=== PATIENT | female | born 1995 | race African-American/Black ===

== ENCOUNTER 2016-08-12 12:44 | Emergency (ER) | payer OTHER ==
[~2016-08-12 12:44] MED LIST: ALBU8.5H6; MONT10TA6; SULF1TAB24 PO; TRIA15OI TP
[2016-08-12 12:58] VITALS: BP 136/73
[2016-08-12] MEDS ORDERED: HYDR-971 PO (13:22)
[2016-08-12] MEDS ORDERED: AMOX500C PO (13:22)
--- NOTE | 2016-08-12 13:22 | PHYS DOC ---
Past Medical History Past Medical History: Asthma Past Surgical History: Tonsillectomy, Other Additional Past Surgical Histo: adnoidectomy Alcohol Use: None Drug Use: None Adult General Chief Complaint Chief Complaint: DENTAL PROBLEM [facility] HPI Patient is a 21 year old female presents emergency department stating that she had her wisdom teeth pulled out a few weeks ago. She states that she had stopped smoking prior to the teeth being pulled. She states she did not use any stress drink a lot of. She states that she is having pain in her lower jaw area and in her upper teeth. She denies any nasal drainage or discharge denies any fever, chills. She has been taken ibuprofen for the pain and discomfort without relief. She states that she called her dentist and they are not able to get her in for at least a week to 2 weeks. Patient presents here to the emergency department for pain relief. Review of Systems Review of Systems Constitutional: Denies fever or chills [] Eyes: Denies change in visual acuity, redness, or eye pain [] HENT: Denies nasal congestion or sore throat. C/o dental pain Respiratory: Denies cough or shortness of breath [] Cardiovascular: No additional information not addressed in HPI [] GI: Denies abdominal pain, nausea, vomiting, bloody stools or diarrhea [] : Denies dysuria or hematuria [] Musculoskeletal: Denies back pain or joint pain [] Integument: Denies rash or skin lesions [] Neurologic: Denies headache, focal weakness or sensory changes [] Allergies Allergies Allergies Coded Allergies Type Severity Reaction Last Updated Verified varicella-zoster immune globulin (h Allergy Intermediate 08/22/15 Yes Physical Exam Physical Exam Constitutional: Well developed, well nourished, no acute distress, non-toxic appearance. [] HENT: Normocephalic, atraumatic, bilateral external ears normal, oropharynx moist, no oral exudates, nose normal. Bilateral tympanic membranes appear to be normal. Throat with no erythematous. Gumline appear to be very red and edematous upper and lower patient was noted to have maxillary sinus tenderness on both sites. No nasal drainage noted. Eyes: PERRLA, EOMI, conjunctiva normal, no discharge. [] Neck: Normal range of motion, no tenderness, supple, no stridor. [] Cardiovascular:Heart rate regular rhythm, no murmur [] Lungs & Thorax: Bilateral breath sounds clear to auscultation [] Skin: Warm, dry, no erythema, no rash. [] Back: No tenderness Extremities: No tenderness, no cyanosis, no clubbing, ROM intact, no edema. [] Neurologic: Alert and oriented X 3, normal motor function, normal sensory function, no focal deficits noted. [] Psychologic: Affect normal, judgement normal, mood normal. [] EKG EKG [] Radiology/Procedures Radiology/Procedures [] Course & Med Decision Making Course & Med Decision Making Pertinent Labs and Imaging studies reviewed. (See chart for details) Patient will be placed on amoxicillin 1 tablet 4 times a day with recommendations for ibuprofen 800 mg every 8 hours with food. Patient will be provided with hydrocodone for severe pain and discomfort. Patient was encouraged to keep her dental appointment. Patient agrees with discharge instructions treatment regimens and follow-up recommendations. Also recommended warm salt water mouth rinses 4 times a day. She was also instructed that hydrocodone will cause drowsiness do not take any be alert and oriented. [] Dragon Disclaimer Dragon Disclaimer This electronic medical record was generated, in whole or in part, using a voice recognition dictation system. Departure Departure Impression: Primary Impression: Pain, dental Disposition: HOME, SELF-CARE Condition: STABLE Referrals: SYDNI CURTIS MD (PCP) Patient Instructions: Dental Pain, [id number] Additional Instructions: Activity as tolerated. Medications as prescribed. Ibuprofen 800 mg every 8 hours with food stop taking few develop an upset stomach. Hydrocodone will cause drowsiness do not take any be alert and oriented. Keep your follow-up appointment with your dentist in which she state you have next week. Return back to emergency department sign symptoms of become worse. Scripts Hydrocodone/Apap 5-325 ([place] 5-325 Tablet)1 Each Tablet1 Tab PO PRN Q6HRS PRN PAIN #10 TAB Prov:VERENA JEAN BLANKET WINDER HELPER 08/12/16 Amoxicillin 500 Mg Capsule1 Cap PO QID #40 CAP Prov:VERENA JEAN BLANKET WINDER HELPER 08/12/16 VERENA JEAN BLANKET WINDER HELPER Aug 12, 2016 13:22
== END 2016-08-12 13:30 | disposition home or self-care (01) ==
LOC: ER 12:44
DX: K08.89 Other specified disorders of teeth and supporting structures (principal); J45.909 Unspecified asthma, uncomplicated; Z88.7 Allergy status to serum and vaccine
CPT/HCPCS: 99283

== ENCOUNTER 2016-08-19 20:10 | Emergency (ER) | payer OTHER ==
[~2016-08-19 20:10] MED LIST changes: +AMOX500C PO; +HYDR-971 PO
[2016-08-19 20:56] VITALS: BP 121/68
--- NOTE | 2016-08-19 21:24 | PHYS DOC ---
Past Medical History Past Medical History: No Pertinent History, Asthma Past Surgical History: Appendectomy, , Tonsillectomy, Other Additional Past Surgical Histo: adnoidectomy, Tubes placed in ears and removed, vaginal abscess. Alcohol Use: None Drug Use: None Adult General Chief Complaint Chief Complaint: SKIN RASH/ABSCESS [facility] HPI Patient is a 21 year old female presents emergency department stating that she has a boil underneath her left arm in the axillary area. She states that she's had these in the previous years. She states that she did have to have one lanced when she was in middle school. She states her last tetanus shot was in the last 1-2 years. She denies any drainage or discharge coming from the site. She states that she is on the Dopo shot and does not know when her last missed her period occurred. Patient is very tearful. Review of Systems Review of Systems Constitutional: Denies fever or chills [] Eyes: Denies change in visual acuity, redness, or eye pain [] HENT: Denies nasal congestion or sore throat [] Respiratory: Denies cough or shortness of breath [] Cardiovascular: No additional information not addressed in HPI [] GI: Denies abdominal pain, nausea, vomiting, bloody stools or diarrhea [] : Denies dysuria or hematuria [] Musculoskeletal: Denies back pain or joint pain [] Integument: Denies rash or skin lesions. Boil to the left axilla Neurologic: Denies headache, focal weakness or sensory changes [] Current Medications Current Medications Current Medications Medications (Trade) Dose Ordered Sig/Alexa Start Time Stop Time Status Last Admin Dose Admin Lidocaine/Sodium Bicarbonate (Buffered Lidocaine 1%) 20 ml 1X ONCE 08/19/16 21:30 08/19/16 21:31 DC 08/19/16 21:28 20 ML Allergies Allergies Allergies Coded Allergies Type Severity Reaction Last Updated Verified varicella-zoster immune globulin (h Allergy Intermediate 08/22/15 Yes Physical Exam Physical Exam Constitutional: Well developed, well nourished, no acute distress, non-toxic appearance. [] HENT: Normocephalic, atraumatic, bilateral external ears normal, oropharynx moist, no oral exudates, nose normal. [] Eyes: PERRLA, EOMI, conjunctiva normal, no discharge. [] Neck: Normal range of motion, no tenderness, supple, no stridor. [] Cardiovascular:Heart rate regular rhythm, no murmur [] Lungs & Thorax: Bilateral breath sounds clear to auscultation [] Skin: Warm, dry, no erythema, no rash. Patient with an abscess noted to the axilla with no drainage or discharge noted patient does have induration noted. Back: No tenderness Extremities: No tenderness, no cyanosis, no clubbing, ROM intact, no edema. [] Neurologic: Alert and oriented X 3, normal motor function, normal sensory function, no focal deficits noted. [] Psychologic: Affect normal, judgement normal, mood normal. [] Current Patient Data Vital Signs Vital Signs Date Time Temp Pulse Resp B/P Pulse Ox O2 Delivery O2 Flow Rate FiO2 08/19/16 20:56 99.1 88 16 98 Room Air 99.1 EKG EKG [] Radiology/Procedures Radiology/Procedures [] Course & Med Decision Making Course & Med Decision Making Pertinent Labs and Imaging studies reviewed. (See chart for details) Assessment patient she was crying and very emotional due to the pain and discomfort. Patient states that she has had the abscess for the last 3-5 days. Patient states it's increasingly become worse. Lidocaine ordered. Patient continued to cry become very emotional in the room. Patient has chosen to leave AGAINST MEDICAL ADVICE as she wanted immediate attention and wanted the abscess lanced. Patient had been informed that myself was busy with other patients and I 'm be in to see her next to be able to [place] the area. Patient got up and walked out of the department. [] Dragon Disclaimer Dragon Disclaimer This electronic medical record was generated, in whole or in part, using a voice recognition dictation system. Departure Departure Impression: Primary Impression: Left against medical advice Additional Impression: Abscess Disposition: AGAINST MEDICAL ADVICE Condition: STABLE Referrals: SYDNI CURTIS MD (PCP) Problem Qualifiers VERENA JEAN APRN Aug 19, 2016 21:24
[2016-08-19] MEDS ORDERED: LIDOCAINE 1% / SOD BICARB 8.4% 20 ML VIAL. IJ ONE (21:30)
== END 2016-08-19 22:02 | disposition left against medical advice (07) ==
LOC: ER 20:10
DX: L02.412 Cutaneous abscess of left axilla (principal); J45.909 Unspecified asthma, uncomplicated; Z88.7 Allergy status to serum and vaccine
CPT/HCPCS: 96372; 99283-25

== ENCOUNTER 2016-09-21 22:00 | Emergency (ER) | payer OTHER ==
[~2016-09-21] VITALS: Ht 170.2 cm; Wt 116.1 kg
[2016-09-21 22:56] VITALS: BP 135/61
[2016-09-21] MEDS ORDERED: LIDOCAINE 1% / SOD BICARB 8.4% 20 ML VIAL. IJ ONE (23:00)
--- NOTE | 2016-09-21 23:11 | PHYS DOC ---
Past Medical History Past Medical History: No Pertinent History, Asthma Past Surgical History: Appendectomy, , Tonsillectomy, Other Additional Past Surgical Histo: adnoidectomy, Tubes placed in ears and removed, vaginal abscess. Alcohol Use: None Drug Use: None Adult General Chief Complaint Chief Complaint: SKIN RASH/ABSCESS HPI HPI Patient is a 21 year old female presents to the emergency department with an abscess to the left axilla. Patient was seen here on 08/20 for the same abscess when she left AGAINST MEDICAL ADVICE at that time. She states that she went to admission and had it lanced and opened up. They instructed her that this may come back and provided her a dye box operator to followup. Patient presents here today stating the abscess came back about 2-3 days ago. She states there is been some clear drainage coming from the site. She's been placing warm moist packs over the area. She denies any fever, chills or any nausea vomiting. She states her last tetanus immunization was approximately one to 2 years ago. Patient continues to state that she was seen at urgent care and was provided Flagyl cream to place over the site in which she has been compliant doing. Review of Systems Review of Systems Constitutional: Denies fever or chills [] Eyes: Denies change in visual acuity, redness, or eye pain [] HENT: Denies nasal congestion or sore throat [] Respiratory: Denies cough or shortness of breath [] Cardiovascular: No additional information not addressed in HPI [] GI: Denies abdominal pain, nausea, vomiting, bloody stools or diarrhea [] : Denies dysuria or hematuria [] Musculoskeletal: Denies back pain or joint pain [] Integument: Denies rash or skin lesions. C/o abscess to left axilla Neurologic: Denies headache, focal weakness or sensory changes [] Endocrine: Denies polyuria or polydipsia [] Current Medications Current Medications Current Medications Medications (Trade) Dose Ordered Sig/Alexa Start Time Stop Time Status Last Admin Dose Admin Lidocaine/Sodium Bicarbonate (Buffered Lidocaine 1%) 20 ml 1X ONCE 09/21/16 23:00 09/21/16 23:01 DC 09/21/16 22:54 20 ML Allergies Allergies Allergies Coded Allergies Type Severity Reaction Last Updated Verified varicella-zoster immune globulin (h Allergy Intermediate 08/22/15 Yes Physical Exam Physical Exam Constitutional: Well developed, well nourished, no acute distress, non-toxic appearance. [] HENT: Normocephalic, atraumatic, bilateral external ears normal, oropharynx moist, no oral exudates, nose normal. [] Eyes: PERRLA, EOMI, conjunctiva normal, no discharge. [] Neck: Normal range of motion, no tenderness, supple, no stridor. [] Cardiovascular:Heart rate regular rhythm, no murmur [] Lungs & Thorax: Bilateral breath sounds clear to auscultation [] Abdomen: Bowel sounds normal, soft, no tenderness, no masses, no pulsatile masses. [] Skin: Warm, dry, no erythema, no rash. Patient with abscess to the left axilla. Approximate size of a large grape. The area is indurated, red and tender Back: No tenderness Extremities: No tenderness, no cyanosis, no clubbing, ROM intact, no edema. [] Neurologic: Alert and oriented X 3, normal motor function, normal sensory function, no focal deficits noted. [] Psychologic: Affect normal, judgement normal, mood normal. [] Current Patient Data Vital Signs Vital Signs Date Time Temp Pulse Resp B/P (MAP) Pulse Ox O2 Delivery O2 Flow Rate FiO2 09/21/16 22:56 98.5 74 16 99 Room Air 98.5 EKG EKG [] Radiology/Procedures Radiology/Procedures [] Course & Med Decision Making Course & Med Decision Making Pertinent Labs and Imaging studies reviewed. (See chart for details) Left axilla site was cleaned with Betadine. The site was injected with 1% lidocaine buffered. Patient started screaming and yelling crying telling me to stop weight. Patient continued to scream and cry and yell not to do anything yet. Provider left the room as the patient is moving the left arm around. It was lanced open. After allowing the patient to sit for 15 minutes. Site was opened up with thick yellow bloody drainage noted from the site. Site was packed patient was provided with instructions to follow up with the surgeon. She was provided with Dr. lAex zarate. Patient will be discharged home in stable condition signs symptoms to return back to emergency department provided. She'll be placed on clindamycin. She will also be provided with [place] for severe pain. She was instructed this medication will cause drowsiness do not take if you need to be alert and oriented. [] Dragon Disclaimer Dragon Disclaimer This electronic medical record was generated, in whole or in part, using a voice recognition dictation system. Departure Departure Impression: Primary Impression: Abscess of left axilla Disposition: 01 HOME, SELF-CARE Condition: STABLE Referrals: SYDNI CURTIS MD (PCP) THO NORTH MD Patient Instructions: Abscess, [id number], Incision and Drainage, Care After Additional Instructions: Patient was instructed to keep the area clean and clean Leave the packing in for 2 days and then remove the packing Medications as prescribed Ibuprofen for pain and discomfort. 800 mg every 8 hours with food, stop taking if you develop upset stomach [place] for severe pain. This medication will cause drowsiness do not take if you need to be alert and oriented Followup with surgeon in the next 3-5 days Return to emergency department as needed for signs and symptoms that become worse. Scripts Hydrocodone/Apap 5-325 ([place] 5-325 TABLET) 1 Each Tablet 1 TAB PO PRN Q6HRS Y for PAIN, #15 TAB 0 Refills Prov: VERENA JEAN APRN 09/21/16 Clindamycin Hcl (CLINDAMYCIN HCL) 150 Mg Capsule 3 CAP PO TID for 10 Days, CAP Prov: VERENA JEAN APRN 09/21/16 Incision and Drainage Incision and Drainage : Site: left axilla Blade Size: 11 I & D Procedure: betadine prep, gauze wick placed Progress Site was injected with 4 mL of 1% lidocaine buffered. Site was cleaned with Betadine. #11 blade was used to incise the area with thick yellow bloody drainage noted from the site. Patient still has some non indurated sites around the outer part of the abscess. Site was packed with quarter-inch Nu Gauze. VERENA JEAN APRN September 21, 2016 23:11
[2016-09-21] MEDS ORDERED: HYDR-971 PO (23:26)
[2016-09-21] MEDS ORDERED: CLIN-44 PO (23:26)
== END 2016-09-21 23:39 | disposition home or self-care (01) ==
LOC: ER 22:00
DX: L02.412 Cutaneous abscess of left axilla (principal)
CPT/HCPCS: 10060; 99283-25

== ENCOUNTER 2018-05-22 17:29 | Emergency (ER) | payer OTHER ==
[~2018-05-22] VITALS: Ht 170.2 cm; Wt 114.8 kg
[~2018-05-22 17:29] MED LIST changes: +CLIN150C14 PO; +HYDR-3164 PO; -HYDR-971 PO; +MELO7.5T5 PO
[2018-05-22 17:37] VITALS: BP 155/73
[2018-05-22] MEDS ORDERED: BENZ100C PO (18:22)
[2018-05-22] MEDS ORDERED: PRED50TA PO (18:22)
[2018-05-22] MEDS ORDERED: VENTOLIN HFA18 GM INH (18:22)
--- NOTE | 2018-05-22 18:22 | PHYS DOC ---
Past Medical History Past Medical History: Asthma, Other Additional Past Medical Histor: herpes (FUNMILAYO BOLANOS SLEDGER) Past Surgical History: Appendectomy, , Tonsillectomy, Other Additional Past Surgical Histo: adnoidectomy, Tubes placed in ears and removed, vaginal abscess. (FUNMILAYO BOLANOS APRN) Alcohol Use: Occasionally Drug Use: None (FUNMILAYO BOLANOS APRN) Adult General Chief Complaint Chief Complaint: SORE THROAT HPI HPI Patient is a 22 year old female with history of asthma who presents to the ED today complaining of a productive cough and sore throat for one week. Patient denies any fever. Denies any nasal congestion. (DENISEFUNMILAYO Zhou SLEDGER) Review of Systems Review of Systems Constitutional: Denies fever or chills [] Eyes: Denies change in visual acuity, redness, or eye pain [] HENT: Reports sore throat. Denies nasal congestion Respiratory: Reports cough, denies shortness of breath [] Cardiovascular: No additional information not addressed in HPI [] GI: Denies abdominal pain, nausea, vomiting, bloody stools or diarrhea [] : Denies dysuria or hematuria [] Musculoskeletal: Denies back pain or joint pain [] Integument: Denies rash or skin lesions [] Neurologic: Denies headache, focal weakness or sensory changes [] All other systems were reviewed and found to be within normal limits, except as documented in this note. (KARLYFUNMILAYO PEMBERTON APRN) Allergies Allergies Allergies Coded Allergies Type Severity Reaction Last Updated Verified varicella-zoster immune globulin (h Allergy Intermediate 08/22/15 Yes (PREET FENG DO) Physical Exam Physical Exam Constitutional: Well developed, well nourished, no acute distress, non-toxic appearance. [] HENT: Normocephalic, atraumatic, bilateral external ears normal, oropharynx moist, no oral exudates, nose normal. [] Eyes: PERRLA, EOMI, conjunctiva normal, no discharge. [] Neck: Normal range of motion, no tenderness, supple, no stridor. [] Cardiovascular:Heart rate regular rhythm, no murmur [] Lungs & Thorax: Bilateral breath sounds clear to auscultation [] Abdomen: Bowel sounds normal, soft, no tenderness, no masses, no pulsatile masses. [] Skin: Warm, dry, no erythema, no rash. [] Back: No tenderness, no CVA tenderness. [] Extremities: No tenderness, no cyanosis, no clubbing, ROM intact, no edema. [] Neurologic: Alert and oriented X 3, normal motor function, normal sensory function, no focal deficits noted. [] Psychologic: Affect normal, judgement normal, mood normal. [] (FUNMILAYO BOLANOS APRN) Current Patient Data Vital Signs Vital Signs Date Time Temp Pulse Resp B/P (MAP) Pulse Ox O2 Delivery O2 Flow Rate FiO2 05/22/18 17:37 98.8 89 16 155/73 (100) 97 Room Air 98.8 (PREET FENG DO) Lab Values Laboratory Tests Test 05/22/18 17:50 Group A Streptococcus Rapid Negative (NEGATIVE) (PREET FENG DO) EKG EKG [] (FUNMILAYO BOLANOS APRN) Radiology/Procedures Radiology/Procedures [] (FUNMILAYO BOLANOS APRN) Course & Med Decision Making Course & Med Decision Making Pertinent Labs and Imaging studies reviewed. (See chart for details) This is a 22-year-old female patient presenting to the ED today with cough and sore throat for one week. Negative rapid strep. Symptoms are likely viral. We will discharge him with albuterol inhaler, prednisone, Tessalon Perles. Saltwater gargles encouraged. Follow-up with primary care doctor in 1-2 weeks. (FUNMILAYO BOLANOS APRN) Dragon Disclaimer Dragon Disclaimer This electronic medical record was generated, in whole or in part, using a voice recognition dictation system. (FUNMILAYO BOLANOS APRN) Departure Departure Impression: Primary Impression: Acute bronchitis Additional Impression: Viral pharyngitis Disposition: 01 HOME, SELF-CARE Condition: STABLE Referrals: SYDNI CURTIS MD (PCP) follow up in 1-2 weeks Patient Instructions: Acute Bronchitis, Viral Pharyngitis Additional Instructions: You were evaluated in the emergency room for cough and sore throat. We put you on medications, use them as prescribed. Consider using salt water gargles as needed for sore throat. You can also take Tylenol or Motrin for pain or fever. Follow-up with the primary care doctor in 1-2 weeks. Scripts Benzonatate (TESSALON PERLE) 100 Mg Capsule 1 CAP PO TID, #30 CAP Prov: FUNMILAYO BOLAONS MISTY 05/22/18 Prednisone (PREDNISONE) 50 Mg Tablet 1 TAB PO DAILY, #5 TAB Prov: FUNMILAYO BOLANOS MISTY 05/22/18 Albuterol Sulfate (VENTOLIN HFA INHALER) 18 Gm Hfa.aer.ad 2 PUFF INH Q4HRS for FOR ASTHMA, #1 INHALER 0 Refills Prov: FUNMILAYO BOLANOS MISTY 05/22/18 Attending Signature Attending Signature I have reviewed the PA/CAD ENGINEER's note and plan of care. I was available for consultation as needed during the patient's visit in the emergency department. I agree with the clinical impression, plan, and disposition. (PREET FENG DO) Problem Qualifiers Primary Impression: Acute bronchitis Bronchitis organism: unspecified organism Qualified Codes: J20.9 - Acute bronchitis, unspecified FUNMILAYO BOLANOS MISTY May 22, 2018 18:22 PREET FENG DO May 23, 2018 09:20
== END 2018-05-22 18:31 | disposition home or self-care (01) ==
LOC: ER 17:29
DX: J20.9 Acute bronchitis, unspecified (principal); J02.8 Acute pharyngitis due to other specified organisms; B97.89 Other viral agents as the cause of diseases classified elsewhere; J45.909 Unspecified asthma, uncomplicated
CPT/HCPCS: 87070; 87880; 99283